=== PATIENT | male | born 1990 | race Caucasian/White ===

== ENCOUNTER 2024-02-01 19:41 | Inpatient (IN) | payer OTHER ==
[~2024-02-01] VITALS: Ht 193 cm; Wt 209.0 kg
[2024-02-01] MEDS ORDERED: MAALOX 30 ML SUSP *UDC PO PRN (21:55)
[2024-02-01] MEDS ORDERED: ACETAMINOPHEN 325 MG TAB PO PRN (21:55)
[2024-02-01] MEDS ORDERED: traZODone 50 MG TAB PO PRN (21:55)
[2024-02-01] MEDS ORDERED: MOM 30ML SUSPENSION UDC PO PRN (21:55)
[2024-02-01] MEDS ORDERED: IBUPROFEN 400MG TAB PO PRN (21:55)
[2024-02-01 22:34] LABS: AMPHETAMINES LEVEL URINE NEGATIVE (NEGATIVE); BARBITURATES URINE NEGATIVE (NEGATIVE); BENZODIAZEPINES URINE NEGATIVE (NEGATIVE); COCAINE METABOLITE URINE NEGATIVE (NEGATIVE); METHADONE URINE NEGATIVE (NEGATIVE); OPIATES URINE NEGATIVE (NEGATIVE); PHENCYCLIDINE URINE NEGATIVE (NEGATIVE)
[2024-02-01 22:35] LABS: CANNABINOIDS URINE NEGATIVE (NEGATIVE)
[2024-02-01 23:59] VITALS: BP 145/98; TEMP 97.1; O2SAT 97
[2024-02-02 05:58] VITALS: BP 167/95; TEMP 97.6; O2SAT 100
[2024-02-02] MEDS: NICOTINE 14 MG/24 HR TRANSDERMAL TD SCH (09:00)
[2024-02-02] MEDS ORDERED: LORazepam 2 MG TAB PO PRN (11:25)
[2024-02-02] MEDS ORDERED: COMBIVENT RESPIMAT 100-20MCG INHALER 4GM INH PRN (11:30)
[2024-02-02] MEDS ORDERED: NICOTINE POLACRILEX 2 MG GUM PO PRN (11:30)
[2024-02-02] MEDS: MULTIVITAMINS/MINERALS THERAP 1 TAB PO SCH (11:54)
[2024-02-02] MEDS: THIAMINE 100 MG TAB PO SCH (11:54)
[2024-02-02] MEDS: FOLIC ACID 1MG TAB PO SCH (11:54)
[2024-02-02 11:58] LABS: HEMATOCRIT 40.4 % (42.0-52.0); HEMOGLOBIN 13.9 g/dl (13.5-17.5); MEAN CORPUSCULAR HEMOGLOBIN 29.2 pg (27.0-33.0); MEAN CORPUSCULAR HGB CONC 34.4 g/dl (32.0-36.5); MEAN CORPUSCULAR VOLUME 84.9 fl (80.0-96.0); PLATELET COUNT, AUTOMATED 226 10^3/uL (150-450); RED BLOOD COUNT 4.76 10^6/uL (4.30-6.10); WHITE BLOOD COUNT 7.9 10^3/uL (4.0-10.0)
[2024-02-02 12:14] LABS: HEMOGLOBIN A1c 8.2 % (4.0-6.0)
[2024-02-02 12:28] LABS: ALBUMIN 3.1 G/DL (3.2-5.2); ALKALINE PHOSPHATASE 62 U/L (40-129); ALT/SGPT 43 U/L (7.0-40); AST/SGOT 27 U/L (<34); BILIRUBIN,TOTAL 0.4 MG/DL (0.3-1.2); BLOOD UREA NITROGEN 12 MG/DL (9-23); CALCIUM LEVEL 8.8 MG/DL (8.5-10.1); CARBON DIOXIDE LEVEL 28 MMOL/L (20-31); CHLORIDE LEVEL 104 MMOL/L (98-107); CREATININE FOR GFR 0.59 MG/DL (0.70-1.30); GLOMERULAR FILTRATION RATE > 60.0 (>60); GLUCOSE, FASTING 213 MG/DL (60-100); SODIUM LEVEL 142 MMOL/L (136-145); TOTAL PROTEIN 6.8 G/DL (5.7-8.2)
[2024-02-02 12:30] LABS: THYROID STIMULATING HORMONE 1.465 uIU/ML (0.55-4.78)
[2024-02-02 13:38] VITALS: BP 156/90
[2024-02-02 13:39] VITALS: BP 156/90; TEMP 96.8; O2SAT 98
[2024-02-02] MEDS ORDERED: SEMA0.257 SC (13:45)
[2024-02-02] MEDS ORDERED: THERTAB52 PO (13:45)
[2024-02-02] MEDS ORDERED: OMEG10002 PO (13:45)
[2024-02-02] MEDS ORDERED: ALBU8.5H PO (13:45)
[2024-02-02] MEDS ORDERED: FLUO-365 PO (13:45)
[2024-02-02] MEDS ORDERED: LACT30006 PO (13:45)
[2024-02-02] MEDS ORDERED: HOME MED LIST COMPLETE! XX SCH (13:55)
[2024-02-02] MEDS: diphenhydrAMINE 25MG CAP PO PRN (15:51)
[2024-02-02] MEDS: OLANZapine 5 MG TAB PO PRN (15:51)
[2024-02-02 22:30] VITALS: BP 168/90
[2024-02-03 06:47] VITALS: BP 158/78; TEMP 97.8; O2SAT 96
[2024-02-03 15:11] VITALS: BP 160/98; TEMP 97.3; O2SAT 97
[2024-02-03 15:13] VITALS: BP 160/98
[2024-02-03] MEDS: amLODIPine 5 MG TAB PO PRN (15:13)
[2024-02-03] MEDS: FLUoxetine 20MG CAP PO SCH (16:47)
[2024-02-04 06:19] VITALS: BP 156/89; TEMP 96.9; O2SAT 98
[2024-02-04] MEDS ORDERED: AMLO1TAB24 PO (09:39)
== END 2024-02-04 12:25 | disposition home or self-care (01) | DRG 753 ==
LOC: M ED 19:41 → M ED INP 21:52 → M PSY 23:05
PROVIDERS: ADMIT Psychiatry & Neurology Neurology; ATTEND Psychiatry & Neurology Neurology
DX: F32.89 Other specified depressive episodes (principal); J44.9 Chronic obstructive pulmonary disease, unspecified; G47.33 Obstructive sleep apnea (adult) (pediatric); R45.850 Homicidal ideations; R45.851 Suicidal ideations; E66.01 Morbid (severe) obesity due to excess calories; Z68.43 Body mass index [BMI] 50.0-59.9, adult; F17.200 Nicotine dependence, unspecified, uncomplicated; F10.90 Alcohol use, unspecified, uncomplicated; Z88.2 Allergy status to sulfonamides; Z63.8 Other specified problems related to primary support group